=== PATIENT | male | born 1995 | race Hispanic/Latino ===

== ENCOUNTER 2021-11-25 18:19 | Emergency (ER) | payer SELFPAY ==
[2021-11-25] MEDS ORDERED: Dexamethasone 10 MG/ML VIAL ONE (18:52)
[2021-11-25] MEDS ORDERED: diphenhydrAMINE 50 MG/ML VIAL ONE (18:53)
[2021-11-25] MEDS ORDERED: Famotidine/PF 20 mg/2ml Vial ONE (18:53)
== END 2021-11-25 20:22 | disposition home or self-care (01) ==
LOC: CSHERS 18:19
DX: T63.481A Toxic effect of venom of other arthropod, accidental (unintentional), initial encounter (principal); L50.9 Urticaria, unspecified; F17.290 Nicotine dependence, other tobacco product, uncomplicated
CPT/HCPCS: 96374; 96375; J1100; J1200; S0028